=== PATIENT | male | born 1985 | race Caucasian/White ===

== ENCOUNTER 2023-10-13 09:03 | Emergency (ER) | payer OTHER, BC ==
[2023-10-13] MEDS: Ondansetron 4 MG/2 ML SDV IVPUSH ONE (09:45)
[2023-10-13] MEDS: Morphine 2 MG/ML SYRINGE IM ONE (09:47)
[2023-10-13] MEDS: Morphine 2 MG/ML SYRINGE IVPUSH ONE (09:48)
[2023-10-13 10:27] LABS: MEAN CORPUSCULAR HEMOGLOBIN 30.1 pg (27.0-32.0); MEAN CORPUSCULAR HGB CONC 34.8 g/dL (31.0-35.0); MEAN CORPUSCULAR VOLUME 87 fL (76-96); MEAN PLATELET VOLUME 10.2 fL (6.0-10.0); PLATELET COUNT,PLT 461 K/uL (150-400); RED BLOOD CELL COUNT 5.32 M/uL (4.50-6.50); RED CELL DISTRIBUTION WIDTH 13.7 % (11.0-16.0)
[2023-10-13 10:28] LABS: PTT,PARTIAL THROMBOPLSTIN TIME 33.7 SECONDS (24.4-33.2)
[2023-10-13] MEDS: VANCOmycin 1.5 GM/300 ML 1.5 GM in Premix Bag 1 BAG IV ONE (10:30)
[2023-10-13] MEDS ORDERED: fentaNYL 75 MCG/HR Transdermal Patch TRDERM SCH (10:30)
[2023-10-13 10:32] LABS: A/G RATIO 0.5 (0.8-2.0); ALBUMIN 2.6 g/dL (3.4-5.0); ANION GAP 30.9 mmol/L (5.0-15.0); BILIRUBIN TOTAL 0.6 mg/dL (0.0-1.0); BUN/CREATININE RATIO 22.4 (6-25); CALCIUM 10.5 mg/dL (8.5-10.1); CREATININE 1.34 mg/dL (0.70-1.30); EST CRCL DRUG DOSING (CG) 68.51 mL/min; PROTEIN TOTAL,TP 8.1 g/dL (6.4-8.2)
[2023-10-13] MEDS: Piperacillin/Tazobactam 4.5 GM in Sodium Chloride 0.9% 100 ML IV ONE (10:32)
[2023-10-13 10:34] LABS: WHITE BLOOD CELL COUNT,WBC 37.2 K/uL (4.0-11.0)
[2023-10-13 10:35] LABS: PROTHROMBIN TIME 10.6 sec (9.0-11.5)
[2023-10-13] MEDS: fentaNYL 100 MCG/2 ML SDV IVPUSH ONE ×2 (10:37→12:46)
[2023-10-13 10:41] LABS: CARBON DIOXIDE,CO2 10.1 mmol/L (21.0-32.0)
[2023-10-13] MEDS: Sodium Chloride 0.9% 1,000 ML IV ONE ×2 (10:48→10:52)
[2023-10-13 10:49] LABS: C-REACTIVE PROTEIN 432.5 mg/L (<5.0)
[2023-10-13 11:29] LABS: SEDIMENTATION RATE MANUAL 93 mm/hr (0-15)
[2023-10-13] MEDS ORDERED: fentaNYL 100 MCG/2 ML SDV ONE (12:37)
== END 2023-10-13 13:18 ==
LOC: LB.ED 09:03
DX: L03.213 Periorbital cellulitis (principal); E11.9 Type 2 diabetes mellitus without complications; Z79.4 Long term (current) use of insulin; Z79.84 Long term (current) use of oral hypoglycemic drugs; Z79.899 Other long term (current) drug therapy
CPT/HCPCS: 36415; 70487; 80053; 82947; 83605; 85025; 85610; 85651; 85730; 86140; 87040; 93005; 96365; 96366; 96368; 96375; 96376; 99285; J2270; J2405; J2543; J3010; J3370; J3490; J7030; 93010